=== PATIENT | female | born 1985 | race Two or more races ===

== ENCOUNTER → 2017-11-17 | Outpatient (REF) | payer OTHER ==
[2017-11-18 00:40] LABS: CHLAMYDIA DNA AMPLIFICATION NEGATIVE (NEGATIVE); GC DNA AMPLIFICATION NEGATIVE (NEGATIVE)
== END ==
LOC: M SFHCLERA 17:30
DX: R30.0 Dysuria (principal)

== ENCOUNTER 2018-01-03 09:17 | Emergency (ER) | payer OTHER ==
[2018-01-03] MEDS: KETOROLAC TROMETHAMINE 10 MG TAB PO (10:16)
== END 2018-01-03 10:44 | disposition home or self-care (01) ==
LOC: M ED 09:17
DX: S90.32XA Contusion of left foot, initial encounter (principal); W20.8XXA Other cause of strike by thrown, projected or falling object, initial encounter; Y92.098 Other place in other non-institutional residence as the place of occurrence of the external cause
CPT/HCPCS: 73630

== ENCOUNTER → 2018-10-03 | Outpatient (REF) | payer OTHER ==
[~2018-10-03] MED LIST: NORCOTAB PO
== END ==
LOC: M SFHCLERA 18:47
PROVIDERS: ATTEND Nurse Practitioner Family
DX: Z20.818 Contact with and (suspected) exposure to other bacterial communicable diseases (principal)

== ENCOUNTER → 2019-09-05 | Outpatient (REF) | payer OTHER ==
[~2019-09-05] MED LIST changes: +HYDR-3715 PO; -NORCOTAB PO
== END ==
LOC: M SFHCLERA 18:20
PROVIDERS: ATTEND Nurse Practitioner Family
DX: R30.0 Dysuria (principal)
CPT/HCPCS: 81002; 81025; 87088; 87186; G0463

== ENCOUNTER → 2020-10-09 | Outpatient (CLI) | payer SELFPAY | LOC: M LABSMTC 09:54 | PROVIDERS: ATTEND Pediatrics | DX: Z20.822 Contact with and (suspected) exposure to COVID-19 (principal) ==

== ENCOUNTER → 2023-10-30 | Outpatient (CLI) | payer SELFPAY | LOC: M OUTALCOH 07:50 | PROVIDERS: ATTEND Psychiatry & Neurology Psychiatry | DX: Z03.89 Encounter for observation for other suspected diseases and conditions ruled out (principal) ==

== ENCOUNTER → 2023-12-03 | Outpatient (RCR) | payer OTHER | LOC: M OUTALCOH 11:02 | PROVIDERS: ATTEND Psychiatry & Neurology Psychiatry | DX: F10.20 Alcohol dependence, uncomplicated (principal) ==

== ENCOUNTER 2023-12-31 16:00 | Outpatient (RCR) | payer OTHER | END 2024-01-03 | LOC: M OUTALCOH 16:00 | PROVIDERS: ATTEND Psychiatry & Neurology Psychiatry | DX: F10.20 Alcohol dependence, uncomplicated (principal) ==

== ENCOUNTER 2024-01-15 15:33 | Emergency (ER) | payer OTHER ==
[~2024-01-15] VITALS: Ht 154.9 cm; Wt 57.0 kg
[2024-01-15 15:34] VITALS: BP 112/64; TEMP 98.5; O2SAT 99
== END 2024-01-15 17:59 | disposition left against medical advice (07) ==
LOC: M ED 15:33
DX: Z53.21 Procedure and treatment not carried out due to patient leaving prior to being seen by health care provider (principal)

== ENCOUNTER → 2024-01-22 | Outpatient (CLI) | payer OTHER | LOC: M PLALAB 10:00 | PROVIDERS: ATTEND Obstetrics & Gynecology | DX: Z36.0 Encounter for antenatal screening for chromosomal anomalies (principal) ==

== ENCOUNTER 2024-01-28 15:00 | Outpatient (RCR) | payer OTHER | END 2024-02-02 | LOC: M OUTALCOH 15:00 | PROVIDERS: ATTEND Psychiatry & Neurology Psychiatry | DX: F10.20 Alcohol dependence, uncomplicated (principal) ==

== ENCOUNTER → 2024-02-12 | Outpatient (CLI) | payer OTHER | LOC: M WHC 09:48 | PROVIDERS: ATTEND Obstetrics & Gynecology | DX: Z34.92 Encounter for supervision of normal pregnancy, unspecified, second trimester (principal); Z3A.20 20 weeks gestation of pregnancy ==

== ENCOUNTER 2024-02-15 13:20 | Outpatient (RCR) | payer OTHER | END 2024-03-04 | LOC: M OUTALCOH 13:20 | PROVIDERS: ATTEND Psychiatry & Neurology Psychiatry | DX: F10.20 Alcohol dependence, uncomplicated (principal) ==

== ENCOUNTER 2024-03-21 15:00 | Outpatient (RCR) | payer OTHER | END 2024-04-03 | LOC: M OUTALCOH 15:00 | PROVIDERS: ATTEND Psychiatry & Neurology Psychiatry | DX: F10.20 Alcohol dependence, uncomplicated (principal) ==

== ENCOUNTER 2024-05-02 14:28 | Outpatient (RCR) | payer OTHER | END 2024-05-04 | LOC: M OUTALCOH 14:28 | PROVIDERS: ATTEND Psychiatry & Neurology Psychiatry | DX: F10.20 Alcohol dependence, uncomplicated (principal) ==

== ENCOUNTER → 2024-05-24 | Outpatient (REF) | payer OTHER | LOC: M SFHCWAGY 12:30 | PROVIDERS: ATTEND Advanced Practice Midwife | DX: Z34.83 Encounter for supervision of other normal pregnancy, third trimester (principal); Z36.85 Encounter for antenatal screening for Streptococcus B ==

== ENCOUNTER 2024-06-07 10:40 | Outpatient (CLI) | payer OTHER ==
[~2024-06-07] VITALS: Ht 157.5 cm; Wt 61.5 kg
[2024-06-07 10:52] VITALS: BP 111/74
[2024-06-07] MEDS ORDERED: PRENTAB9 PO (10:55)
[2024-06-07] MEDS ORDERED: ACET-897 PO (10:56)
[2024-06-07 11:41] LABS: APPEARANCE, URINE CLEAR (CLEAR); BACTERIA, URINE AUTO 1+ (NEGATIVE); BILIRUBIN, URINE AUTO NEGATIVE (NEGATIVE); BLOOD, URINE BLOOD NEGATIVE (NEGATIVE); COLOR, URINE YELLOW (YELLOW); GLUCOSE, URINE (UA) AUTO NEGATIVE (NEGATIVE); KETONE, URINE AUTO NEGATIVE (NEGATIVE); LEUKOCYTE ESTERASE, URINE AUTO NEGATIVE (NEGATIVE); NITRITE, URINE AUTO NEGATIVE (NEGATIVE); PROTEIN, URINE AUTO NEGATIVE (NEGATIVE); RBC, URINE AUTO 0 /HPF (0-3); SPECIFIC GRAVITY URINE AUTO 1.008 (1.002-1.035); SQUAMOUS EPITHELIAL CELL UR AU 5 /HPF (0-6); UROBILINOGEN, URINE AUTO 0.2 mg/dL (0.0-2.0); WBC, URINE AUTO 0 /HPF (0-3)
[2024-06-07 11:43] LABS: HEMATOCRIT 35.2 % (36.0-47.0); HEMOGLOBIN 11.9 g/dl (12.0-15.5); MEAN CORPUSCULAR HEMOGLOBIN 30.8 pg (27.0-33.0); MEAN CORPUSCULAR HGB CONC 33.8 g/dl (32.0-36.5); MEAN CORPUSCULAR VOLUME 91.2 fl (80.0-96.0); PLATELET COUNT, AUTOMATED 201 10^3/uL (150-450); RED BLOOD COUNT 3.86 10^6/uL (4.00-5.40); WHITE BLOOD COUNT 5.3 10^3/uL (4.0-10.0)
[2024-06-07 11:55] LABS: INR 1.02; PARTIAL THROMBOPLASTIN TIME 24.1 SECONDS (24.8-34.2); PROTHROMBIN TIME 13.1 SECONDS (12.5-14.5)
[2024-06-07 12:15] VITALS: BP 104/67
[2024-06-23] MEDS ORDERED: IBUP-1022 PO (09:23)
[2024-06-23] MEDS ORDERED: ACET-683 PO (09:23)
== END 2024-06-07 14:00 | disposition home or self-care (01) ==
LOC: M LDO 10:40
PROVIDERS: ATTEND Obstetrics & Gynecology
DX: O26.893 Other specified pregnancy related conditions, third trimester (principal); O09.523 Supervision of elderly multigravida, third trimester; O09.33 Supervision of pregnancy with insufficient antenatal care, third trimester; R10.813 Right lower quadrant abdominal tenderness; R10.814 Left lower quadrant abdominal tenderness; Y92.9 Unspecified place or not applicable; Y93.9 Activity, unspecified; Y99.9 Unspecified external cause status; Z3A.37 37 weeks gestation of pregnancy
CPT/HCPCS: 36415; 59025; 76816; 76820; 81001; 85027; 85384; 85460; 85610; 85730; G0463

== ENCOUNTER 2024-06-30 17:57 | Emergency (ER) | payer OTHER ==
[~2024-06-30] VITALS: Ht 157.5 cm; Wt 57.2 kg
[~2024-06-30 17:57] MED LIST changes: +ACET-683 PO; +ACET-897 PO; +IBUP-1022 PO; +PRENTAB9 PO
[2024-06-30 18:03] VITALS: BP 110/67; TEMP 102.1; O2SAT 97
== END 2024-06-30 18:08 | disposition left against medical advice (07) ==
LOC: M ED 17:57
DX: Z53.21 Procedure and treatment not carried out due to patient leaving prior to being seen by health care provider (principal)

== ENCOUNTER → 2025-01-12 | Outpatient (CLI) | payer OTHER ==
[2025-01-12 15:26] LABS: HEMATOCRIT 35.3 % (36.0-47.0); HEMOGLOBIN 12.2 g/dl (12.0-15.5); MEAN CORPUSCULAR HEMOGLOBIN 31.4 pg (27.0-33.0); MEAN CORPUSCULAR HGB CONC 34.6 g/dl (32.0-36.5); MEAN CORPUSCULAR VOLUME 90.7 fl (80.0-96.0); PLATELET COUNT, AUTOMATED 228 10^3/uL (150-450); RED BLOOD COUNT 3.89 10^6/uL (4.00-5.40); WHITE BLOOD COUNT 5.1 10^3/uL (4.0-10.0)
[2025-01-12 16:22] LABS: HIV 1&2 SCREEN NEGATIVE (NEGATIVE)
[2025-01-12 16:30] LABS: HEPATITIS C VIRUS ABY INDEX 0.03 INDEX (<0.8)
[2025-01-12 16:54] LABS: Trichomonas vaginalis (AMP) NOT DETECTED (NEGATIVE)
[2025-01-12 17:17] LABS: GC DNA AMPLIFICATION NEGATIVE (NEGATIVE)
== END ==
LOC: M PLALAB 12:19
PROVIDERS: ATTEND Advanced Practice Midwife
DX: Z34.80 Encounter for supervision of other normal pregnancy, unspecified trimester (principal)

== ENCOUNTER 2025-05-31 12:57 | Outpatient (CLI) | payer OTHER, MEDICARE ==
[~2025-05-31] VITALS: Ht 157.5 cm; Wt 60.8 kg
[~2025-05-31 12:57] MED LIST changes: -IBUP-1022 PO; +IBUP600T42 PO
[2025-05-31 13:15] VITALS: BP 99/64
[2025-05-31] MEDS ORDERED: TUMS500C PO (13:17)
[2025-05-31 14:29] LABS: APPEARANCE, URINE CLEAR (CLEAR); BACTERIA, URINE AUTO 1+ (NEGATIVE); BILIRUBIN, URINE AUTO NEGATIVE (NEGATIVE); BLOOD, URINE BLOOD NEGATIVE (NEGATIVE); GLUCOSE, URINE (UA) AUTO NEGATIVE (NEGATIVE); KETONE, URINE AUTO TRACE mg/dL (NEGATIVE); LEUKOCYTE ESTERASE, URINE AUTO NEGATIVE (NEGATIVE); MUCUS, URINE SMALL (NEGATIVE); NITRITE, URINE AUTO NEGATIVE (NEGATIVE); PROTEIN, URINE AUTO NEGATIVE (NEGATIVE); RBC, URINE AUTO 0 /HPF (0-3); SPECIFIC GRAVITY URINE AUTO 1.010 (1.002-1.035); SQUAMOUS EPITHELIAL CELL UR AU 2 /HPF (0-6); UROBILINOGEN, URINE AUTO 0.2 mg/dL (0.0-2.0); WBC, URINE AUTO 5 /HPF (0-3)
[2025-05-31 16:17] LABS: GC DNA AMPLIFICATION NEGATIVE (NEGATIVE)
[2025-05-31 16:26] LABS: Trichomonas vaginalis (AMP) NOT DETECTED (NEGATIVE)
== END 2025-05-31 15:30 | disposition home or self-care (01) ==
LOC: M LDO 12:57
PROVIDERS: ATTEND Advanced Practice Midwife
DX: O36.8130 Decreased fetal movements, third trimester, not applicable or unspecified (principal); O26.893 Other specified pregnancy related conditions, third trimester; O09.523 Supervision of elderly multigravida, third trimester; R10.2 Pelvic and perineal pain; Z3A.30 30 weeks gestation of pregnancy
CPT/HCPCS: 59025; 81001; 87088; 87186; 87661; 87810; 87850; G0463

== ENCOUNTER → 2025-07-03 | Outpatient (CLI) | payer OTHER ==
[~2025-07-03] MED LIST changes: +TUMS500C PO
== END ==
LOC: M RAD 11:50
PROVIDERS: ATTEND Nurse Practitioner Family
DX: O09.523 Supervision of elderly multigravida, third trimester (principal)

== ENCOUNTER → 2025-07-06 | Outpatient (REF) | payer OTHER | LOC: M LAB REF 17:34 | PROVIDERS: ATTEND Nurse Practitioner Family | DX: Z34.93 Encounter for supervision of normal pregnancy, unspecified, third trimester (principal); Z3A.35 35 weeks gestation of pregnancy ==

== ENCOUNTER 2025-07-20 20:57 | Inpatient (IN) | payer OTHER ==
[2025-07-20] VITALS (14 sets, daily range): BP systolic 91–130; BP diastolic 55–73
[2025-07-20] MEDS ORDERED: LIDOCAINE 1% MDV 20 ML VIAL INFIL PRN (21:05)
[2025-07-20] MEDS ORDERED: LR 1,000 ML IV SCH (21:05)
[2025-07-20 21:21] LABS: PLATELET COUNT, AUTOMATED 303 10^3/uL (150-450)
[2025-07-20] MEDS ORDERED: NALOXONE INJ 0.4 MG/1 ML VIAL IV PRN (21:35)
[2025-07-20] MEDS ORDERED: EPIDURAL/PCA KEYS XX PRN (21:35)
[2025-07-20] MEDS ORDERED: diphenhydrAMINE 50 MG/ML VIAL IV PRN (21:35)
[2025-07-20] MEDS ORDERED: LR 500 ML IV PRN (21:35)
[2025-07-20] MEDS: LACTATED RINGER'S 1000 ML IV STA (21:49)
[2025-07-20] MEDS: FENTANYL/ROPIVACAINE/NACL BAG 100 ML EPIDURAL SCH (21:56)
[2025-07-20 22:16] LABS: HIV 1&2 SCREEN NEGATIVE (NEGATIVE)
[2025-07-20 22:24] LABS: HEPATITIS C VIRUS ABY INDEX < 0.02 INDEX (<0.8)
[2025-07-20] MEDS: ONDANSETRON 4MG 2ML VIAL IV PRN (22:34)
[2025-07-21] VITALS (8 sets, daily range): BP systolic 94–151; BP diastolic 55–92; O2SAT 99
[2025-07-21] MEDS: OXYTOCIN DRIP 30 UNITS in IV 1 EA IV PRN (00:54)
[2025-07-21] MEDS ORDERED: METHYLERGONOVINE MALEATE 0.2 MG TAB PO PRN (01:20)
[2025-07-21] MEDS ORDERED: ACETAMINOPHEN 325 MG TAB PO PRN (01:20)
[2025-07-21] MEDS ORDERED: IBUPROFEN 600 MG TAB PO PRN (01:20)
[2025-07-21] MEDS ORDERED: RHOGAM 300MCG (1500IU) INJ IM SCH (01:20)
[2025-07-21] MEDS ORDERED: DIBUCAINE 1% OINTMENT 30 GM TOP PRN (01:20)
[2025-07-21] MEDS: ACETAMINOPHEN 500 MG TAB PO PRN (03:35)
[2025-07-21] MEDS: IBUPROFEN 800 MG TAB PO PRN (07:55)
[2025-07-21] MEDS: PRENATAL VITAMINS CHEWABLE TABLET PO SCH (07:55)
[2025-07-21] MEDS: DOCUSATE SODIUM 100 MG CAPSULE PO PRN (14:40)
[2025-07-21] MEDS: SERTRALINE HCL 25 MG TABLET PO SCH (20:01)
[2025-07-22 06:00] VITALS: BP 117/65; O2SAT 99
[2025-07-23] MEDS ORDERED: MEASLES,MUMPS,RUBELLA VACCINE INJ (MMR-II) SC.IMMUN ONE (09:00)
== END 2025-07-22 15:15 | disposition home or self-care (01) | DRG 560 ==
LOC: M LDO 20:57 → M LDI 21:01 → M OBS 07-21 03:04
PROVIDERS: ADMIT Specialist; ATTEND Specialist
PROC: 10E0XZZ Delivery of Products of Conception, External Approach (ICD-10-PCS; principal; 2025-07-21)
PROC: 10907ZC Drainage of Amniotic Fluid, Therapeutic from Products of Conception, Via Natural or Artificial Opening (ICD-10-PCS; 2025-07-21)
DX: O80 Encounter for full-term uncomplicated delivery (principal); Z37.0 Single live birth; Z3A.37 37 weeks gestation of pregnancy